=== PATIENT | female | born 1970 | race Caucasian/White ===

== ENCOUNTER 2017-12-10 11:08 | Emergency (ER) | payer SELFPAY ==
[~2017-12-10] VITALS: Wt 131.3 kg
[2017-12-10 11:16] VITALS: BP 163/80
[2017-12-10] MEDS ORDERED: ZYRTEC ALLERGY10 MG PO (11:26)
[2017-12-10] MEDS ORDERED: VYVANSE30 MG PO (11:26)
[2017-12-10] MEDS ORDERED: BYSTOLIC10 MG PO (11:27)
[2017-12-10] MEDS ORDERED: DULOXETINE60 MG PO (11:27)
[2017-12-10] MEDS ORDERED: OMEPRAZOLE40 MG PO (11:27)
[2017-12-10 12:04] LABS: HEMATOCRIT 42.9 % (37.0-47.0); HEMOGLOBIN 13.4 g/dL (12.5-16.0); MEAN CELL VOLUME 85 fl (78-100); MEAN CORPUSCULAR HEMOGLOBIN 27 pg (27-31); MEAN CORPUSCULAR HGB CONC 31 g/dL (33-37); PLATELET COUNT 306 K/mm3 (130-400); RED BLOOD COUNT 5.03 M/mm3 (4.10-5.30); RED CELL DISTRIBUTION WIDTH 15.9 % (11.5-14.5); WHITE BLOOD COUNT 12.6 K/mm3 (4.8-10.8)
[2017-12-10 12:49] LABS: BAND 3 % (0-10); LYMPHOCYTE 4 % (20-51); MONOCYTE 1 % (3-10); NEUTROPHILS 92 % (42-75)
[2017-12-10 12:54] LABS: ALBUMIN 3.7 g/dL (3.5-5.0); BUN/CREATININE RATIO 19.1 (6.0-26.0); CALCIUM 8.6 mg/dL (8.4-10.2); POTASSIUM 4.3 mmol/L (3.6-5.0); TOTAL BILIRUBIN 0.7 mg/dL (0.2-1.3); TOTAL PROTEIN 7.4 g/dL (6.3-8.2)
[2017-12-10] MEDS ORDERED: ZOFRAN ODT4 MG PO (13:21)
== END 2017-12-10 14:13 | disposition home or self-care (01) ==
LOC: ED 11:08
PROVIDERS: Family Medicine
DX: B34.9 Viral infection, unspecified (principal); F98.8 Other specified behavioral and emotional disorders with onset usually occurring in childhood and adolescence; F32.9 Major depressive disorder, single episode, unspecified
CPT/HCPCS: J1885

== ENCOUNTER 2018-01-21 17:15 | Emergency (ER) | payer SELFPAY ==
[~2018-01-21] VITALS: Wt 131.7 kg
[~2018-01-21 17:15] MED LIST: BYSTOLIC10 MG PO; DULOXETINE60 MG PO; OMEPRAZOLE40 MG PO; VYVANSE30 MG PO; ZOFRAN ODT4 MG PO; ZYRTEC ALLERGY10 MG PO
[2018-01-21] MEDS ORDERED: COZAAR25 M1 PO (17:20)
[2018-01-21 18:04] LABS: BASO # 0.1 (0.02-0.10); EOS # 0.1 (0.04-0.40); EOS % 0.9 % (1.0-5.0); HEMATOCRIT 41.5 % (37.0-47.0); HEMOGLOBIN 12.8 g/dL (12.5-16.0); LYMPH# 2.2 (1.50-4.00); MEAN CELL VOLUME 87 fl (78-100); MEAN CORPUSCULAR HEMOGLOBIN 27 pg (27-31); MEAN CORPUSCULAR HGB CONC 31 g/dL (33-37); MEAN PLATELET VOLUME 9.4 fl (7.4-10.4); MONO # 0.7 (0.20-0.80); NEU # 11.9 (1.40-6.50); PLATELET COUNT 376 K/mm3 (130-400); RED BLOOD COUNT 4.77 M/mm3 (4.10-5.30); RED CELL DISTRIBUTION WIDTH 15.3 % (11.5-14.5)
[2018-01-21 18:16] LABS: ALBUMIN 3.6 g/dL (3.5-5.0); ALT/SGPT 64 U/L (9-52); AST-SGOT 50 U/L (14-36); BUN/CREATININE RATIO 19.7 (6.0-26.0); CALCIUM 8.6 mg/dL (8.4-10.2); CARBON DIOXIDE 25 mmol/L (22-30); GLUCOSE 151 mg/dL (65-105); LIPASE 70 U/L (23-300); POTASSIUM 3.8 mmol/L (3.6-5.0); SODIUM 138 mmol/L (137-145); TOTAL BILIRUBIN 0.3 mg/dL (0.2-1.3); TOTAL PROTEIN 6.7 g/dL (6.3-8.2)
[2018-01-21 18:23] LABS: CKMB ISOENZYME 0.9 ng/mL (0.6-3.5)
[2018-01-21 18:24] LABS: TROPONIN-I < 0.03 ng/mL (0.00-0.06)
[2018-01-21 18:26] LABS: URINE APPEARANCE CLOUDY; URINE BILIRUBIN NEGATIVE (NEGATIVE); URINE BLOOD 50 ery/uL (NEGATIVE); URINE COLOR YELLOW; URINE GLUCOSE NEGATIVE (NEGATIVE); URINE KETONE NEGATIVE (NEGATIVE); URINE LEUKOCYTE ESTERASE NEGATIVE (NEGATIVE); URINE MUCUS PRESENT (NOT PRESENT); URINE NITRATE NEGATIVE (NEGATIVE); URINE PROTEIN(semi-quant) TRACE mg/dL (NEGATIVE); URINE UROBILINOGEN NORMAL (NORMAL)
[2018-01-21 18:30] LABS: D-DIMER 1.52 mg/L FEU (0.15-0.50)
[2018-01-21 21:13] VITALS: BP 140/95
== END 2018-01-21 21:13 | disposition home or self-care (01) ==
LOC: ED 17:15
PROVIDERS: Nurse Practitioner Primary Care
DX: R07.9 Chest pain, unspecified (principal); R07.1 Chest pain on breathing; R11.0 Nausea; R61 Generalized hyperhidrosis; R06.03 Acute respiratory distress; F41.9 Anxiety disorder, unspecified; R00.0 Tachycardia, unspecified; I10 Essential (primary) hypertension; F32.9 Major depressive disorder, single episode, unspecified; Z88.1 Allergy status to other antibiotic agents
CPT/HCPCS: J1650; J2405; J3490; J7030; Q9967

== ENCOUNTER 2018-11-23 11:42 | Emergency (ER) | payer MEDICAID ==
[~2018-11-23] VITALS: Ht 160 cm; Wt 129.5 kg
[~2018-11-23 11:42] MED LIST changes: +COZAAR25 M1 PO
[2018-11-23] MEDS ORDERED: HYOSCYAMINE0.125 M7 PO (11:54)
[2018-11-23] MEDS ORDERED: PAMELOR25 M1 PO (11:54)
[2018-11-23] MEDS ORDERED: VYVANSE30 MG PO (11:55)
[2018-11-23 12:24] LABS: EOS # 0.2 (0.04-0.40); EOS % 1.5 % (1.0-5.0); HEMATOCRIT 45.6 % (37.0-47.0); HEMOGLOBIN 14.6 g/dL (12.5-16.0); MEAN CELL VOLUME 88 fl (78-100); MEAN CORPUSCULAR HEMOGLOBIN 28 pg (27-31); MEAN CORPUSCULAR HGB CONC 32 g/dL (33-37); MEAN PLATELET VOLUME 9.2 fl (7.4-10.4); MONO # 0.7 (0.20-0.80); PLATELET COUNT 397 K/mm3 (130-400); RED BLOOD COUNT 5.16 M/mm3 (4.10-5.30); RED CELL DISTRIBUTION WIDTH 14.4 % (11.5-14.5)
[2018-11-23 12:42] LABS: ALBUMIN 4.3 g/dL (3.5-5.0); CALCIUM 9.5 mg/dL (8.4-10.2); POTASSIUM 4.6 mmol/L (3.6-5.0); TOTAL BILIRUBIN 0.6 mg/dL (0.2-1.3)
[2018-11-23 13:19] LABS: LIPASE 64 U/L (23-300)
[2018-11-23] MEDS ORDERED: ZOFRAN ODT4 MG PO (14:17)
[2018-11-23 15:08] LABS: URINE APPEARANCE CLOUDY; URINE COLOR YELLOW
[2018-11-23 15:09] LABS: URINE BILIRUBIN NEGATIVE (NEGATIVE); URINE BLOOD TRACE (NEGATIVE); URINE GLUCOSE NEGATIVE (NEGATIVE); URINE KETONE NEGATIVE (NEGATIVE); URINE LEUKOCYTE ESTERASE NEGATIVE (NEGATIVE); URINE NITRATE NEGATIVE (NEGATIVE); URINE PROTEIN(semi-quant) TRACE mg/dL (NEGATIVE); URINE UROBILINOGEN NORMAL (NORMAL); URINE WBC 0-1 /hpf (0-3)
[2018-11-23 15:40] VITALS: BP 159/85
[2018-11-23] MEDS ORDERED: ADDERALL XR15 MG PO (22:02)
[2018-11-23] MEDS ORDERED: FEXOFENADINE H180 M1 PO (22:03)
[2018-11-23] MEDS ORDERED: NAUZENE TABLET1 EACH PO (22:03)
== END 2018-11-23 15:53 | disposition home or self-care (01) ==
LOC: ED 11:42
PROVIDERS: Physician Assistant
DX: E86.0 Dehydration (principal); K52.9 Noninfective gastroenteritis and colitis, unspecified; F41.9 Anxiety disorder, unspecified; J45.909 Unspecified asthma, uncomplicated; Z88.1 Allergy status to other antibiotic agents; K44.9 Diaphragmatic hernia without obstruction or gangrene; Z90.49 Acquired absence of other specified parts of digestive tract; Z79.899 Other long term (current) drug therapy
CPT/HCPCS: J2060; J2405; J7030

== ENCOUNTER 2018-11-23 19:27 | Emergency (ER) | payer MEDICAID ==
[~2018-11-23] VITALS: Ht 160 cm; Wt 129.5 kg
[~2018-11-23 19:27] MED LIST changes: +HYOSCYAMINE0.125 M7 PO; +PAMELOR25 M1 PO
[2018-11-23 20:43] LABS: EOS # 0.3 (0.04-0.40); HEMATOCRIT 44.1 % (37.0-47.0); HEMOGLOBIN 14.1 g/dL (12.5-16.0); LYMPH# 1.9 (1.50-4.00); MEAN CELL VOLUME 89 fl (78-100); MEAN CORPUSCULAR HEMOGLOBIN 29 pg (27-31); MEAN CORPUSCULAR HGB CONC 32 g/dL (33-37); MEAN PLATELET VOLUME 9.2 fl (7.4-10.4); MONO # 0.7 (0.20-0.80); PLATELET COUNT 366 K/mm3 (130-400); RED BLOOD COUNT 4.95 M/mm3 (4.10-5.30); RED CELL DISTRIBUTION WIDTH 14.6 % (11.5-14.5); WHITE BLOOD COUNT 14.4 K/mm3 (4.8-10.8)
[2018-11-23 20:50] LABS: NEU # 11.5 (1.40-6.50)
[2018-11-23 20:55] LABS: CALCIUM 9.1 mg/dL (8.4-10.2); POTASSIUM 4.5 mmol/L (3.6-5.0)
[2018-11-23] MEDS ORDERED: ADDERALL XR15 MG PO (22:02)
[2018-11-23] MEDS ORDERED: NAUZENE TABLET1 EACH PO (22:03)
[2018-11-23] MEDS ORDERED: FEXOFENADINE H180 M1 PO (22:03)
[2018-11-24 01:37] VITALS: BP 148/97
== END 2018-11-24 01:37 | disposition home or self-care (01) ==
LOC: ED 19:27
PROVIDERS: Family Medicine
DX: A08.4 Viral intestinal infection, unspecified (principal); R55 Syncope and collapse; I10 Essential (primary) hypertension; F32.9 Major depressive disorder, single episode, unspecified; E66.9 Obesity, unspecified; Z90.49 Acquired absence of other specified parts of digestive tract; Z79.899 Other long term (current) drug therapy; Z68.43 Body mass index [BMI] 50.0-59.9, adult
CPT/HCPCS: J1885; J2765; J7030

== ENCOUNTER 2019-05-11 07:10 | Emergency (ER) | payer MEDICAID ==
[~2019-05-11 07:10] MED LIST changes: +ADDERALL XR15 MG PO; +FEXOFENADINE H180 M1 PO; +NAUZENE TABLET1 EACH PO
[2019-05-11] MEDS ORDERED: HYDROCHLOROTHIA1 T14 PO (07:24)
[2019-05-11] MEDS ORDERED: ABILIFY2 MG PO (07:26)
[2019-05-11] MEDS ORDERED: TRULICITY0.75 MG/0. SQ (07:26)
[2019-05-11 08:07] LABS: EOS # 0.1 (0.04-0.40); EOS % 1.1 % (1.0-5.0); HEMOGLOBIN 14.6 g/dL (12.5-16.0); LYMPH# 2.2 (1.50-4.00); MEAN CELL VOLUME 87 fl (78-100); MEAN CORPUSCULAR HEMOGLOBIN 28 pg (27-31); MEAN CORPUSCULAR HGB CONC 32 g/dL (33-37); MONO # 0.6 (0.20-0.80); NEU # 8.1 (1.40-6.50); PLATELET COUNT 428 K/mm3 (130-400); RED CELL DISTRIBUTION WIDTH 15.9 % (11.5-14.5); WHITE BLOOD COUNT 11.1 K/mm3 (4.8-10.8)
[2019-05-11 09:44] LABS: ALBUMIN 3.8 g/dL (3.5-5.0); CALCIUM 9.7 mg/dL (8.3-10.5); POTASSIUM 3.9 mmol/L (3.5-5.1); TOTAL BILIRUBIN 0.7 mg/dL (0.2-1.2); TOTAL PROTEIN 8.1 g/dL (6.4-8.3)
[2019-05-11] MEDS ORDERED: ZOFRAN ODT4 MG PO (10:22)
[2019-05-11 10:35] LABS: URINE APPEARANCE HAZY; URINE BILIRUBIN NEGATIVE (NEGATIVE); URINE BLOOD TRACE (NEGATIVE); URINE COLOR YELLOW; URINE GLUCOSE NEGATIVE (NEGATIVE); URINE KETONE NEGATIVE (NEGATIVE); URINE LEUKOCYTE ESTERASE TRACE (NEGATIVE); URINE NITRATE NEGATIVE (NEGATIVE); URINE PROTEIN(semi-quant) TRACE mg/dL (NEGATIVE); URINE UROBILINOGEN NORMAL (NORMAL)
[2019-05-11 10:36] LABS: URINE MUCUS PRESENT (NOT PRESENT)
[2019-05-11 11:23] VITALS: BP 104/74
== END 2019-05-11 11:26 | disposition home or self-care (01) ==
LOC: ED 07:10
PROVIDERS: Family Medicine
DX: K52.9 Noninfective gastroenteritis and colitis, unspecified (principal); E11.9 Type 2 diabetes mellitus without complications; I10 Essential (primary) hypertension; Z90.49 Acquired absence of other specified parts of digestive tract; Z90.710 Acquired absence of both cervix and uterus

== ENCOUNTER 2019-05-13 00:55 | Observation (INO) | payer MEDICAID ==
[~2019-05-13] VITALS: Ht 157.5 cm; Wt 124.5 kg
[~2019-05-13 00:55] MED LIST changes: +ABILIFY2 MG PO; +HYDROCHLOROTHIA1 T14 PO; +TRULICITY0.75 MG/0. SQ
[2019-05-13 02:23] LABS: EOS # 0.2 (0.04-0.40); EOS % 1.3 % (1.0-5.0); HEMATOCRIT 43.7 % (37.0-47.0); HEMOGLOBIN 13.9 g/dL (12.5-16.0); LYMPH# 2.4 (1.50-4.00); MEAN CELL VOLUME 86 fl (78-100); MEAN CORPUSCULAR HEMOGLOBIN 27 pg (27-31); MEAN CORPUSCULAR HGB CONC 32 g/dL (33-37); MEAN PLATELET VOLUME 9.1 fl (7.4-10.4); MONO # 0.8 (0.20-0.80); NEU # 11.8 (1.40-6.50); PLATELET COUNT 417 K/mm3 (130-400); RED BLOOD COUNT 5.07 M/mm3 (4.10-5.30); RED CELL DISTRIBUTION WIDTH 15.5 % (11.5-14.5); WHITE BLOOD COUNT 15.2 K/mm3 (4.8-10.8)
[2019-05-13 02:39] LABS: ALBUMIN 3.4 g/dL (3.5-5.0); POTASSIUM 3.7 mmol/L (3.5-5.1); TOTAL BILIRUBIN 0.4 mg/dL (0.2-1.2)
[2019-05-13 07:19] LABS: HEMOGLOBIN 13.7 g/dL (12.5-16.0); MEAN CELL VOLUME 88 fl (78-100); MEAN CORPUSCULAR HEMOGLOBIN 27 pg (27-31); MEAN CORPUSCULAR HGB CONC 31 g/dL (33-37); PLATELET COUNT 417 K/mm3 (130-400); RED BLOOD COUNT 5.03 M/mm3 (4.10-5.30); RED CELL DISTRIBUTION WIDTH 15.6 % (11.5-14.5); WHITE BLOOD COUNT 16.9 K/mm3 (4.8-10.8)
[2019-05-13 07:29] LABS: BAND 5 % (0-10); LYMPHOCYTE 11 % (20-51); MONOCYTE 3 % (3-10); NEUTROPHILS 80 % (42-75)
[2019-05-13 07:53] LABS: CALCIUM 8.7 mg/dL (8.3-10.5); POTASSIUM 4.8 mmol/L (3.5-5.1)
[2019-05-13 08:57] VITALS: BP 110/76
[2019-05-13 11:26] VITALS: BP 109/74
[2019-05-13 15:23] VITALS: BP 117/80
[2019-05-13 18:30] VITALS: BP 121/83
[2019-05-13 22:56] VITALS: BP 104/62
[2019-05-14 03:10] VITALS: BP 90/59
[2019-05-14 06:22] VITALS: BP 101/57
[2019-05-14 06:51] LABS: EOS # 0.3 (0.04-0.40); EOS % 2.9 % (1.0-5.0); HEMATOCRIT 38.5 % (37.0-47.0); LYMPH# 1.9 (1.50-4.00); MEAN CELL VOLUME 88 fl (78-100); MEAN CORPUSCULAR HEMOGLOBIN 28 pg (27-31); MEAN CORPUSCULAR HGB CONC 31 g/dL (33-37); MEAN PLATELET VOLUME 9.1 fl (7.4-10.4); MONO # 0.5 (0.20-0.80); NEU # 6.5 (1.40-6.50); PLATELET COUNT 323 K/mm3 (130-400); RED BLOOD COUNT 4.36 M/mm3 (4.10-5.30); RED CELL DISTRIBUTION WIDTH 15.6 % (11.5-14.5); WHITE BLOOD COUNT 9.2 K/mm3 (4.8-10.8)
[2019-05-14 07:21] LABS: ALBUMIN 2.9 g/dL (3.5-5.0); CALCIUM 8.1 mg/dL (8.3-10.5); POTASSIUM 3.5 mmol/L (3.5-5.1); TOTAL BILIRUBIN 0.4 mg/dL (0.2-1.2); TOTAL PROTEIN 5.7 g/dL (6.4-8.3)
[2019-05-14 10:59] VITALS: BP 110/77
[2019-05-14 14:57] VITALS: BP 96/60
[2019-05-14] MEDS ORDERED: LISINOPRIL AND1 TA2 PO (17:06)
[2019-05-14 18:36] VITALS: BP 108/68
[2019-05-14 23:52] VITALS: BP 115/77
[2019-05-15 03:34] VITALS: BP 123/85
[2019-05-15 06:21] VITALS: BP 117/77
[2019-05-15] MEDS ORDERED: LEVEMIR FLEX100 U/ML SQ (10:50)
[2019-05-15 11:10] VITALS: BP 108/71
== END 2019-05-15 13:40 | disposition home or self-care (01) ==
LOC: ED 00:55 → MED/SURG 08:26
PROVIDERS: Family Medicine; ADMIT Nurse Practitioner Primary Care
DX: R10.9 Unspecified abdominal pain (principal); E11.9 Type 2 diabetes mellitus without complications; I10 Essential (primary) hypertension; F32.9 Major depressive disorder, single episode, unspecified; E66.01 Morbid (severe) obesity due to excess calories; K76.0 Fatty (change of) liver, not elsewhere classified; K21.9 Gastro-esophageal reflux disease without esophagitis; Z90.49 Acquired absence of other specified parts of digestive tract; Z90.710 Acquired absence of both cervix and uterus; Z88.1 Allergy status to other antibiotic agents; R19.7 Diarrhea, unspecified; N28.9 Disorder of kidney and ureter, unspecified; Z79.4 Long term (current) use of insulin
CPT/HCPCS: C9113; G0378; J0744; J1650; J1815; J1885; J2060; J2270; J2765; J3490; J7030; J7120; Q9967

== ENCOUNTER 2019-07-22 16:12 | Emergency (ER) | payer MEDICAID ==
[~2019-07-22] VITALS: Ht 160 cm; Wt 122.7 kg
[~2019-07-22 16:12] MED LIST changes: +LEVEMIR FLEX100 U/ML SQ; +LISINOPRIL AND1 TA2 PO
[2019-07-22 16:30] LABS: BASO # 0.1 (0.02-0.10); EOS # 0.3 (0.04-0.40); EOS % 1.9 % (1.0-5.0); HEMOGLOBIN 14.1 g/dL (12.5-16.0); LYMPH# 2.8 (1.50-4.00); MEAN CELL VOLUME 85 fl (78-100); MEAN CORPUSCULAR HEMOGLOBIN 27 pg (27-31); MEAN CORPUSCULAR HGB CONC 32 g/dL (33-37); MEAN PLATELET VOLUME 9.5 fl (7.4-10.4); MONO # 0.7 (0.20-0.80); PLATELET COUNT 439 K/mm3 (130-400); RED BLOOD COUNT 5.15 M/mm3 (4.10-5.30); RED CELL DISTRIBUTION WIDTH 14.3 % (11.5-14.5); WHITE BLOOD COUNT 14.5 K/mm3 (4.8-10.8)
[2019-07-22 16:37] LABS: NEU # 10.6 (1.40-6.50)
[2019-07-22 16:38] LABS: ALBUMIN 3.8 g/dL (3.5-5.0); POTASSIUM 4.3 mmol/L (3.5-5.1); SODIUM 129 mmol/L (136-145)
[2019-07-22 16:39] LABS: CALCIUM 9.7 mg/dL (8.3-10.5)
[2019-07-22 16:40] LABS: TOTAL PROTEIN 7.8 g/dL (6.4-8.3)
[2019-07-22 16:41] LABS: CARBON DIOXIDE 24 mmol/L (22-29)
[2019-07-22 16:42] LABS: TOTAL BILIRUBIN 0.5 mg/dL (0.2-1.2)
[2019-07-22 16:46] LABS: AST-SGOT 51 U/L (5-34)
[2019-07-22 16:47] LABS: ALT/SGPT 49 U/L (0-55)
[2019-07-22 16:53] LABS: GLUCOSE 512 mg/dL (65-105); TROPONIN-I < 0.03 ng/mL (<0.030)
[2019-07-22 19:39] LABS: URINE APPEARANCE HAZY; URINE COLOR YELLOW
[2019-07-22 19:40] LABS: URINE BILIRUBIN NEGATIVE (NEGATIVE); URINE BLOOD TRACE (NEGATIVE); URINE KETONE NEGATIVE (NEGATIVE); URINE LEUKOCYTE ESTERASE NEGATIVE (NEGATIVE); URINE NITRATE NEGATIVE (NEGATIVE); URINE PROTEIN(semi-quant) NEGATIVE (NEGATIVE); URINE UROBILINOGEN NORMAL (NORMAL)
[2019-07-22 21:00] VITALS: BP 100/66
== END 2019-07-22 21:00 | disposition home or self-care (01) ==
LOC: ED 16:12
PROVIDERS: Nurse Practitioner Primary Care
DX: E11.65 Type 2 diabetes mellitus with hyperglycemia (principal); R55 Syncope and collapse; I10 Essential (primary) hypertension; Z79.84 Long term (current) use of oral hypoglycemic drugs; Z90.49 Acquired absence of other specified parts of digestive tract; Z90.710 Acquired absence of both cervix and uterus; Z79.4 Long term (current) use of insulin
CPT/HCPCS: J1815; J3480; J7030

== ENCOUNTER 2020-01-30 11:44 | Emergency (ER) | payer MEDICAID ==
[2020-01-30] MEDS ORDERED: FLUTICASONE-SA1 EAC3 IH (11:53)
[2020-01-30] MEDS ORDERED: ROSUVASTATIN CA20 MG PO (11:53)
[2020-01-30] MEDS ORDERED: LISINOPRIL AND1 TA1 PO (11:54)
[2020-01-30 12:21] LABS: EOS # 0.2 (0.04-0.40); EOS % 1.4 % (1.0-5.0); HEMATOCRIT 48.1 % (37.0-47.0); HEMOGLOBIN 15.3 g/dL (12.5-16.0); LYMPH# 2.4 (1.50-4.00); MEAN CELL VOLUME 88 fl (78-100); MEAN CORPUSCULAR HEMOGLOBIN 28 pg (27-31); MEAN CORPUSCULAR HGB CONC 32 g/dL (33-37); MEAN PLATELET VOLUME 9.3 fl (7.4-10.4); MONO # 0.7 (0.20-0.80); PLATELET COUNT 430 K/mm3 (130-400); RED BLOOD COUNT 5.47 M/mm3 (4.10-5.30); RED CELL DISTRIBUTION WIDTH 14.5 % (11.5-14.5); WHITE BLOOD COUNT 15.3 K/mm3 (4.8-10.8)
[2020-01-30 12:32] LABS: POTASSIUM 3.7 mmol/L (3.5-5.1)
[2020-01-30 12:33] LABS: CALCIUM 9.3 mg/dL (8.3-10.5)
[2020-01-30 12:34] LABS: TOTAL PROTEIN 7.8 g/dL (6.4-8.3)
[2020-01-30 12:36] LABS: TOTAL BILIRUBIN 0.5 mg/dL (0.2-1.2)
[2020-01-30 13:26] LABS: URINE APPEARANCE CLOUDY; URINE BILIRUBIN NEGATIVE (NEGATIVE); URINE BLOOD 50 ery/uL (NEGATIVE); URINE COLOR YELLOW; URINE GLUCOSE NEGATIVE (NEGATIVE); URINE KETONE NEGATIVE (NEGATIVE); URINE LEUKOCYTE ESTERASE NEGATIVE (NEGATIVE); URINE MUCUS PRESENT (NOT PRESENT); URINE NITRATE NEGATIVE (NEGATIVE); URINE PROTEIN(semi-quant) 1+ mg/dL (NEGATIVE); URINE UROBILINOGEN NORMAL (NORMAL)
[2020-01-30] MEDS ORDERED: ONDANSETRON ODT8 MG PO (17:23)
[2020-01-30 18:43] VITALS: BP 136/98
== END 2020-01-30 18:22 | disposition home or self-care (01) ==
LOC: ED 11:44
PROVIDERS: Nurse Practitioner Family
DX: E86.0 Dehydration (principal); R10.13 Epigastric pain; R11.2 Nausea with vomiting, unspecified; R19.7 Diarrhea, unspecified; E11.9 Type 2 diabetes mellitus without complications; I10 Essential (primary) hypertension; F32.9 Major depressive disorder, single episode, unspecified; Z79.4 Long term (current) use of insulin; Z90.49 Acquired absence of other specified parts of digestive tract; Z90.710 Acquired absence of both cervix and uterus
CPT/HCPCS: J2270; J2405; J7030; Q9967

== ENCOUNTER 2020-02-02 14:43 | Emergency (ER) | payer MEDICAID ==
[~2020-02-02 14:43] MED LIST changes: +FLUTICASONE-SA1 EAC3 IH; +LISINOPRIL AND1 TA1 PO; +ONDANSETRON ODT8 MG PO; +ROSUVASTATIN CA20 MG PO
[2020-02-02 15:49] LABS: EOS # 0.3 (0.04-0.40); EOS % 2.3 % (1.0-5.0); HEMATOCRIT 46.9 % (37.0-47.0); LYMPH# 2.3 (1.50-4.00); MEAN CELL VOLUME 88 fl (78-100); MEAN CORPUSCULAR HEMOGLOBIN 28 pg (27-31); MEAN CORPUSCULAR HGB CONC 32 g/dL (33-37); MEAN PLATELET VOLUME 9.5 fl (7.4-10.4); MONO # 0.6 (0.20-0.80); PLATELET COUNT 366 K/mm3 (130-400); RED BLOOD COUNT 5.32 M/mm3 (4.10-5.30); RED CELL DISTRIBUTION WIDTH 14.4 % (11.5-14.5)
[2020-02-02 15:53] LABS: NEU # 11.7 (1.40-6.50)
[2020-02-02 15:54] LABS: ALBUMIN 3.6 g/dL (3.5-5.0)
[2020-02-02 15:56] LABS: CALCIUM 9.3 mg/dL (8.3-10.5)
[2020-02-02 15:57] LABS: TOTAL PROTEIN 7.2 g/dL (6.4-8.3)
[2020-02-02 15:59] LABS: TOTAL BILIRUBIN 0.3 mg/dL (0.2-1.2)
[2020-02-02 17:56] VITALS: BP 100/57
== END 2020-02-02 17:47 | disposition home or self-care (01) ==
LOC: ED 14:43
PROVIDERS: Family Medicine
DX: R10.9 Unspecified abdominal pain (principal); E11.9 Type 2 diabetes mellitus without complications; K21.9 Gastro-esophageal reflux disease without esophagitis; Z79.4 Long term (current) use of insulin; Z90.49 Acquired absence of other specified parts of digestive tract; Z90.710 Acquired absence of both cervix and uterus
CPT/HCPCS: J1885; J7030

== ENCOUNTER 2020-02-04 15:52 | Observation (INO) | payer MEDICAID ==
[~2020-02-04] VITALS: Ht 157.5 cm; Wt 122.6 kg
[2020-02-04] MEDS ORDERED: ESTRADIOL42.5 GM VG (16:06)
[2020-02-04] MEDS ORDERED: LANTUS SOLOS100 U/ML SQ (16:06)
[2020-02-04] MEDS ORDERED: LEVALBUTEROL TA15 GM IH (16:07)
[2020-02-04 17:01] LABS: EOS # 0.3 (0.04-0.40); EOS % 1.7 % (1.0-5.0); HEMATOCRIT 46.5 % (37.0-47.0); HEMOGLOBIN 15.1 g/dL (12.5-16.0); LYMPH# 2.6 (1.50-4.00); MEAN CELL VOLUME 88 fl (78-100); MEAN CORPUSCULAR HEMOGLOBIN 29 pg (27-31); MEAN CORPUSCULAR HGB CONC 33 g/dL (33-37); MEAN PLATELET VOLUME 9.1 fl (7.4-10.4); MONO # 0.7 (0.20-0.80); NEU # 13.5 (1.40-6.50); PLATELET COUNT 379 K/mm3 (130-400); RED BLOOD COUNT 5.27 M/mm3 (4.10-5.30); RED CELL DISTRIBUTION WIDTH 14.3 % (11.5-14.5); WHITE BLOOD COUNT 17.2 K/mm3 (4.8-10.8)
[2020-02-04 17:10] LABS: ALBUMIN 3.8 g/dL (3.5-5.0)
[2020-02-04 17:12] LABS: CALCIUM 9.8 mg/dL (8.3-10.5)
[2020-02-04 17:13] LABS: TOTAL PROTEIN 7.2 g/dL (6.4-8.3)
[2020-02-04 17:15] LABS: TOTAL BILIRUBIN 0.3 mg/dL (0.2-1.2)
[2020-02-04 19:07] LABS: LIPASE 17 U/L (8-78)
[2020-02-04 20:29] LABS: URINE APPEARANCE HAZY; URINE BILIRUBIN NEGATIVE (NEGATIVE); URINE BLOOD TRACE (NEGATIVE); URINE COLOR YELLOW; URINE KETONE NEGATIVE (NEGATIVE); URINE LEUKOCYTE ESTERASE NEGATIVE (NEGATIVE); URINE MUCUS PRESENT (NOT PRESENT); URINE NITRATE NEGATIVE (NEGATIVE); URINE PROTEIN(semi-quant) NEGATIVE (NEGATIVE); URINE UROBILINOGEN NORMAL (NORMAL)
[2020-02-04 21:27] VITALS: BP 117/58
[2020-02-04] MEDS ORDERED: ANASPAZ0.125 M1 PO (22:08)
[2020-02-04] MEDS ORDERED: PRENATAL MULTI1 EAC3 PO (22:10)
[2020-02-04] MEDS ORDERED: ALLERGY RELIEF10 M2 PO (22:11)
[2020-02-04 22:15] VITALS: BP 117/58
[2020-02-04 22:16] VITALS: BP 112/74
--- NOTE | 2020-02-04 23:00 | NUR ---
Patient admitted from the ER for observation at 2109. Aunt Gretchen is present for support of patient. Patient has nausea at a 6/10 and abdominal pain at a 6/10. Provider notified. Patient brought home meds and list reconciled. Patient has not vomited since arrival. Patient has an IV in the R AC. NS initiated in ER and new order for LR at 125 ml/hr initiated on the floor. Patient's glucose at 168. 4 units of insulin provided per sliding scale. Patient refused SCDs ordered. VS, skin assessment, lungs all WNL upon assessment.
--- NOTE | 2020-02-05 00:34 | NUR ---
Provider notified of slight redness/tenderness at catheter insertion site. Verbal order provided per Raiza Leger APRN to remove INT and wait until the am to re-evaluate if another IV will be needed. IV fluids are currently running. INT removed from the R AC with the catheter tip intact. Patient tolerated well.
[2020-02-05 02:04] VITALS: BP 104/73
--- NOTE | 2020-02-05 05:00 | NUR ---
Patient reports pain at a 2/10 in abdomen, tolerable. Patient's no longer is nauseous. Patient slept well through the night. Aunt is in recliner at bedside.
[2020-02-05 05:40] VITALS: BP 108/75
[2020-02-05 05:56] LABS: EOS % 5.3 % (1.0-5.0); HEMATOCRIT 41.1 % (37.0-47.0); LYMPH# 3.6 (1.50-4.00); MEAN CELL VOLUME 90 fl (78-100); MEAN CORPUSCULAR HEMOGLOBIN 28 pg (27-31); MEAN CORPUSCULAR HGB CONC 32 g/dL (33-37); MEAN PLATELET VOLUME 9.3 fl (7.4-10.4); MONO # 0.8 (0.20-0.80); PLATELET COUNT 321 K/mm3 (130-400); RED BLOOD COUNT 4.59 M/mm3 (4.10-5.30); RED CELL DISTRIBUTION WIDTH 14.3 % (11.5-14.5); WHITE BLOOD COUNT 17.6 K/mm3 (4.8-10.8)
[2020-02-05 06:07] LABS: POTASSIUM 3.2 mmol/L (3.5-5.1)
[2020-02-05 06:08] LABS: CALCIUM 8.5 mg/dL (8.3-10.5)
[2020-02-05 06:20] LABS: EOS # 0.9 (0.04-0.40); NEU # 12.2 (1.40-6.50)
--- NOTE | 2020-02-05 07:00 | NUR ---
Report received from JOSE ANGEL Castillo. PT in bed resting, family at bedside, janet lee, will yun to monitor.
--- NOTE | 2020-02-05 07:19 | NUR ---
Patient slept through the night. Day shift nurses notified of WBC and potassium levels from new labs. Report given to JOSE ANGEL Mckeon and JOSE ANGEL Esteves.
[2020-02-05] MEDS ORDERED: LANTUS SOLOS100 U/ML SQ (08:47)
[2020-02-05 09:34] VITALS: BP 105/69
--- NOTE | 2020-02-05 10:24 | NUR ---
Assessment charted. Discussed BP with Hospitalist and give only 1 BP med per recs, pt resting in bed on side, sleeping between disturbances. States she is not in pain, charles any nausea or diarrhea issues. Resting quietly with IVF to R A/C. Will continue to monitor.
[2020-02-05 13:47] VITALS: BP 93/60
--- NOTE | 2020-02-05 17:45 | NUR ---
Pt has done well this afternoon. Slept off and on between disturbances, IVF dc'd per orders. Resting in room on side, denies any pain, states abd feels as if it is "growling". Wants to shower later this evening. Will give bedside shift report to nightshift nurse who will resume care.
[2020-02-05 17:46] VITALS: BP 97/62
--- NOTE | 2020-02-05 19:00 | NUR ---
Report given by JOSE ANGEL Esteves.
--- NOTE | 2020-02-05 20:45 | NUR ---
Patient laying in bed with SCDs on both legs. Patient states, "I feel better today." and "I've had a good day." No N/V present during the day or at this time. Patient reports that her INT is a little tender. INT flushed and is patent but slightly reddened around the catheter site. No streaking, edema or cording felt upon palpatation. To notify the provider. Patient reports slight tenderness and soreness in lower abdoment, especially upon movement (1-2/10). Patient has tolerated food well today. Advised that this could be sore muscles from the many number of times she vomited yesterday and will take time to heal. Patient agreed.
[2020-02-05 21:45] VITALS: BP 107/67
--- NOTE | 2020-02-05 22:00 | NUR ---
[facility] down for system updates from [id number].
--- NOTE | 2020-02-05 22:05 | NUR ---
Patient awake and offered shower. Patient refused and would like a shower in the morning.
[2020-02-06 02:11] VITALS: BP 110/74
[2020-02-06 05:50] VITALS: BP 126/82
--- NOTE | 2020-02-06 07:00 | NUR ---
Report given to JOSE ANGEL Steinberg.
[2020-02-06 07:34] LABS: EOS % 6.2 % (1.0-5.0); HEMATOCRIT 40.7 % (37.0-47.0); HEMOGLOBIN 12.8 g/dL (12.5-16.0); LYMPH# 2.6 (1.50-4.00); MEAN CELL VOLUME 90 fl (78-100); MEAN CORPUSCULAR HEMOGLOBIN 28 pg (27-31); MEAN CORPUSCULAR HGB CONC 31 g/dL (33-37); MEAN PLATELET VOLUME 8.6 fl (7.4-10.4); MONO # 0.4 (0.20-0.80); NEU # 7.2 (1.40-6.50); PLATELET COUNT 270 K/mm3 (130-400); RED BLOOD COUNT 4.51 M/mm3 (4.10-5.30); RED CELL DISTRIBUTION WIDTH 14.2 % (11.5-14.5)
[2020-02-06 07:47] LABS: EOS # 0.7 (0.04-0.40)
[2020-02-06 07:54] LABS: POTASSIUM 3.6 mmol/L (3.5-5.1)
[2020-02-06 07:55] LABS: CALCIUM 8.7 mg/dL (8.3-10.5)
--- NOTE | 2020-02-06 09:59 | NUR ---
SHOWER SET UP PROVIDED BY NUCLEAR OPERATOR. PATIENT ABLE TO SHOWER INDEPENDENTLY. CLEAN LINENS APPLIED TO BED.
[2020-02-06 10:03] VITALS: BP 106/68
--- NOTE | 2020-02-06 10:30 | NUR ---
AWAKE IN BED. TAKES MEDICATIONS WITHOUT DIFFICULTY. ENJOYED SHOWER THIS AM AND FEELS REFRESHED. REPORTS EATING A REGULAR BREAKFAST. NO NAUSEA FOLLOWING. DOES HAVE SOME ABDOMINAL CRAMPING, RATED 4/10. OFFER PRN LEVSIN AND REFUSES. BOWEL SOUNDS PRESENT X4 QUADS; NO ABD TENDERNESS NOTED. CALL LIGHT IN REACH.
--- NOTE | 2020-02-06 12:00 | NUR ---
FELT HUNGRY FOR LUNCH. ATE 100% OF MEAL TRAY. NO NAUSEA CURRENTLY. FEELS BETTER. REPORTS FEELING HAPPY WITH FSBS DURING HOSPITAL STAY.
[2020-02-06 14:18] VITALS: BP 130/83
--- NOTE | 2020-02-06 15:37 | NUR ---
DRESSED. RESTING IN BED ON RT SIDE. DENIES NEEDS AT THIS TIME. DISCUSS POSSIBLE DISCHARGE TODAY AFTER SUPPER. SHE DOES HAVE TRANSPORTATION HOME WHEN NEEDED. DIARRHEA THIS AM X1 EPISODE THIS AM. DENIES NAUSEA.
--- NOTE | 2020-02-06 17:15 | NUR ---
PATIENT BELONGINGS FROM MED ROOM COLLECTED AND PROVIDED TO HER.
[2020-02-06 17:35] VITALS: BP 136/83
--- NOTE | 2020-02-06 17:37 | NUR ---
DC INSTRUCTIONS REVIEWED WITH PATIENT. DISCUSS IMPORTANCE OF ADEQUATE HYDRATION IF USING IMODIUM AND IF N/V/D CONTINUES. HAS NO QUESTIONS. AUNT HAS ALREADY TAKEN BELONGINGS FROM ROOM HOME.
--- NOTE | 2020-02-06 17:52 | NUR ---
AMBULATES TO EXIT WITH BULK STATION AGENT. GAIT STEADY.
== END 2020-02-06 17:53 | disposition home or self-care (01) ==
LOC: ED 15:52 → MED/SURG 20:58
PROVIDERS: Physician Assistant; ADMIT Nurse Practitioner Family
DX: R11.2 Nausea with vomiting, unspecified (principal); R19.7 Diarrhea, unspecified; D72.829 Elevated white blood cell count, unspecified; E11.9 Type 2 diabetes mellitus without complications; E86.0 Dehydration; K92.1 Melena; I10 Essential (primary) hypertension; K21.9 Gastro-esophageal reflux disease without esophagitis; F32.9 Major depressive disorder, single episode, unspecified; Z79.52 Long term (current) use of systemic steroids; Z79.4 Long term (current) use of insulin; Z90.710 Acquired absence of both cervix and uterus; Z90.49 Acquired absence of other specified parts of digestive tract; Z79.51 Long term (current) use of inhaled steroids; Z88.1 Allergy status to other antibiotic agents; Z88.8 Allergy status to other drugs, medicaments and biological substances
CPT/HCPCS: G0378; J1815; J2550; J7030; J7120